=== PATIENT | female | born 1940 | race Caucasian/White ===

== ENCOUNTER 2018-11-16 12:35 | Observation (INO) | payer MEDICARE, OTHER ==
--- NOTE | 2018-11-16 14:00 | PDOC ---
History of Present Illness - General Stated Complaint: DIZZYNESS / NAUSEA - History of Present Illness Initial Comments: 11/16/18 13:59 77 yo female with PMH HTN, HLD, aortic valve replacement presents with complaint of 1 day of dizziness vs lightheadedness upon exertion. She states yesterday in addition to the dizziness she has one episode of feeling vague heaviness on the right side associated with some diaphoresis, which resolved after about one hour. She also endorses some nausea yesterday which prevented her from eating, however prior to yesterday she states she has had a normal appetite recently and been drinking plenty of water. She denies any recent chest pain or SOB, fevers, chills, cough, abdominal pain, vomiting, diarrhea. She notes feeling similar symptoms rarely in the past which have quickly resolved. She comes in today due to the fact that they have persisted from yesterday to today. Past History - Past Medical History Allergies/Adverse Reactions: Allergies Allergy/AdvReac Type Severity Reaction Status Date / Time No Known Allergies Allergy Verified 11/16/18 15:43 Home Medications: Ambulatory Orders Amlodipine Besylate [Norvasc -] 2.5 mg PO DAILY 11/16/18 Aspirin [ASA -] 81 mg PO DAILY 11/16/18 Atorvastatin Ca [Lipitor] 40 mg PO HS 11/16/18 - Suicide/Smoking/Psychosocial Hx Smoking History: Never smoked Have you smoked in the past 12 months: No Information on smoking cessation initiated: No Hx Alcohol Use: No Drug/Substance Use Hx: No Review of Systems - Review of Systems Able to Perform ROS?: Yes Constitutional: Yes: Diaphoresis. No: Chills, Fever HEENTM: No: Blurred Vision Respiratory: No: Cough, Shortness of Breath Cardiac (ROS): No: Chest Pain, Edema ABD/GI: Yes: Nausea. No: Abdominal Distended, Diarrhea, Vomiting : No: Burning, Dysuria, Discharge Musculoskeletal: No: Back Pain Neurological: Yes: Dizziness *Physical Exam - Vital Signs Last Vital Signs Temp Pulse Resp BP Pulse Ox 98.6 F 64 20 127/81 99 11/16/18 12:51 11/16/18 12:51 11/16/18 12:51 11/16/18 12:51 11/16/18 12:51 - Physical Exam Comments: 11/16/18 13:59 GEN: A&O, no acute distress HEENT: moist mucus membranes NECK: no carotid bruit noted HEART: 3/6 holosystolic murmur most audible at right sternal border, RRR LUNGS: CTA b/l ABDOMEN: Soft, nontender EXTREMITIES: no peripheral edema NEURO: CN II-XII grossly in tact, 5/5 strength throughout, no sensory deficits noted. Moderate Sedation - Procedure Monitoring Vital Signs: Procedure Monitoring Vital Signs Temperature 98.6 F 11/16/18 12:51 Pulse Rate 64 11/16/18 12:51 Respiratory Rate 20 11/16/18 12:51 Blood Pressure 127/81 11/16/18 12:51 O2 Sat by Pulse Oximetry (%) 99 11/16/18 12:51 ED Treatment Course - LABORATORY CBC & Chemistry Diagram: 11/16/18 14:54 11/16/18 14:54 Medical Decision Making - Medical Decision Making 11/16/18 14:20 77 yo female with pmh HTN, HLD, Aortic heart valve replacement, presents with lightheadedness vs dizziness on exertion, nausea, and an episode of right sided UE heaviness associated with sweating which lasted 1 hour yesterday. CBC, CMP, Cardiac profile, EKG, CXR, Orthostatic vital signs, Influenza swab, 1L fluid bolus 11/16/18 15:32 Upon reevaluation pt states she has been anemic in the past but is not requiring any supplementation. CBC noted wnl. Coags wnl. EKG without any concerning ST/T wave abnormalities CMP, cardiac profile, flu swab, CXR pending 11/16/18 16:14 CMP, Cardiac profile wnl, pt states she is currently feeling well. Flu and CXR pending. Pt had ECHO one month ago which she states was normal. 11/16/18 17:26 Flu negative, CXR without any signs of acute pathology. Will discuss case with Cardiology for further recommendations. 11/16/18 17:40 Cardiology recommends Telemetry observation and evaluation in the morning for consideration of inpatient vs outpatient stress test. Trend Troponins X3. Will discuss with hospitalist for observation. *DC/Admit/Observation/Transfer Diagnosis at time of Disposition: Lightheaded - Discharge Dispostion Condition at time of disposition: Stable Decision to Admit order: Yes - Referrals Referrals: Jayna Gonzales MD [Primary Care Provider] - Jasper Salinas MD [Staff Physician] - - Patient Instructions Printed Discharge Instructions: DI for Dizziness-Nonvertigo - Post Discharge Activity
[2018-11-16] MEDS ORDERED: LACTATED RINGERS SOLUTION 1000 ML INFUS.BAG IV ONE (14:43)
[2018-11-16 15:04] LABS: BASO % 0.6 % (0-2.0); HEMATOCRIT 37.6 % (32.4-45.2); HEMOGLOBIN 12.9 GM/dL (10.7-15.3); LYMPH % 21.4 % (8-40); MCH 30.5 pg (25.7-33.7); MCHC 34.3 g/dl (32.0-36.0); MEAN CELL VOLUME 89.1 fl (80-96); MEAN PLT VOLUME 9.4 fl (7.5-11.1); PLATELET COUNT 181 K/MM3 (134-434); RBC 4.21 M/mm3 (3.60-5.2); RDW 14.5 % (11.6-15.6); WHITE BLOOD COUNT 6.2 K/mm3 (4.0-10.0)
[2018-11-16 15:29] LABS: INR 1.01 (0.83-1.09); PROTHROMBIN TIME (PATIENT) 11.9 SEC (9.7-13.0)
--- NOTE | 2018-11-16 15:47 | EKG ---
Test Reason : Blood Pressure : / mmHG Vent. Rate : 070 BPM Atrial Rate : 070 BPM P-R Int : 140 ms QRS Dur : 084 ms QT Int : 442 ms P-R-T Axes : 038 -16 036 degrees QTc Int : 477 ms NORMAL SINUS RHYTHM NONSPECIFIC ST ABNORMALITY ABNORMAL ECG WHEN COMPARED WITH ECG OF 29-SEP-2002 09:55, QT HAS LENGTHENED Confirmed by TRISHA NORRIS, OTIS ([id number]) on 11/16/2018 3:46:39 PM Referred By: Confirmed By:OTIS RICO MD
[2018-11-16 15:57] LABS: ALBUMIN 4.4 g/dl (3.4-5.0); ALK PHOS 146 U/L (45-117); ANION GAP 8 MMOL/L (8-16); BILIRUBIN,TOTAL 0.4 mg/dL (0.2-1); BLOOD UREA NITROGEN 10 mg/dL (7-18); CALCIUM 9.2 mg/dL (8.5-10.1); CHLORIDE 107 mmol/L (98-107); CO2 26 mmol/L (21-32); CREATININE 0.7 mg/dL (0.55-1.3); GLUCOSE,RANDOM 77 mg/dL (74-106); POTASSIUM 3.9 mmol/L (3.5-5.1); SGOT/AST 24 U/L (15-37); SGPT/ALT 34 U/L (13-61); SODIUM 141 mmol/L (136-145)
--- NOTE | 2018-11-16 17:14 | PDOC ---
Documentation entered by Sweta Son SCRIBE, acting as scribe for Sharmaine Gardiner MD. Attending Attestation - Resident Resident Name: Christoph Green - [facility] HPI: 11/16/18 15:03 The patient is a 77 year old female with a significant past medical history of HTN, HLD, aortic valve replacement who presents to the ED with complaint of dizziness and lightheadedness upon exertion for 1 day. The patient states she also experienced a heaviness sensation to her right side and sweating during her episode of dizziness which resolved after about an hour. She states she has been drinking plenty of fluids. She denies chest pain, SOB, palpitations. She denies urinary changes. She denies changes in BM. no leg edema. see dr galeas for cardiology. has had echo many years ago, no recent stress test per family. 11/16/18 17:12 - Physicial Exam PE: 11/16/18 17:12 awake alert lungs clear bilaterally heart rrr no mrg abd soft nt nd.ext wwp no edema. no calf tendernss. alert oriented x 3. - Medical Decision Making 11/16/18 17:13 77 yo F h/o aortic valve with episode of right sided atypical chest heaviness. diaphoresis and fatigue. differential atypical angina, anemia, electrolyte abnoramlity infection such as pna. plan cxr ekg trop aspirin. labs normal ekg unremarkable. cxr normal. will admit for atypical angina. d/w dr rodriguez for gudelia 11/16/18 18:29 Heart Score/ECG Review #1 General ECG Interpretation: Sinus Rhythm, Normal Rate (70), Normal Intervals, No acute ischemic changes Sharmaine Gardiner MD: This documentation has been prepared by the Adelaida dickson Amanda, SCRIBE, under my direction and personally reviewed by me in its entirety. I confirm that the documentation accurately reflects all work, treatment, procedures, and medical decision making performed by me.
--- NOTE | 2018-11-16 18:27 | PN ---
Teaching Attending Note Name of Resident: Hina Tinoco ATTENDING PHYSICIAN STATEMENT I saw and evaluated the patient. I reviewed the resident's note and discussed the case with the resident. I agree with the resident's findings and plan as documented. SUBJECTIVE: 77yo F wtih PMH dyslipidemia, AV replacement and recently diagnosed HTN and started on low dose norvasc presented [facility] nausea and R sided CP x1 day. was feeling nauseated all day yesterday but did not vomit. was unable to eat due to the nausea. also developed non radiating R sided chest pressure that self resolved after an hour. some mild dizzyness waxing/waning. reports a normal echo last month. last stress test was several years ago and reports that as negative. only change was recently starting norvasc which she did not take today. denies fever, chills, V/C/D, no dry heaving OBJECTIVE: Last Vital Signs Temp Pulse Resp BP Pulse Ox 98.6 F 64 20 127/81 99 11/16/18 12:51 11/16/18 12:51 11/16/18 12:51 11/16/18 12:51 11/16/18 12:51 General NAD CV S1 S2 RRR +murmur no chest wall tenderness Lungs CTA B/L no wheezing/rales/rhonchi Abdomen soft NT/ND Extremities no pedal edema ASSESSMENT AND PLAN: 77yo F wtih PMH dyslipidemia, AV replacement and recently diagnosed HTN and started on low dose norvasc presented to the ER wt nausea and R sided CP x1 day. 1. R sided CP- tele observation for continuous cardiac monitoring. trend troponins Q6H x2. echo was recently done and will obtain report. cardio was consulted and will decide stress test inpatient vs outpatient 2. Dizzyness-now resolved. orthostatics reported as negative. possible over medication with antihypertensive agent as pt is normotensive here and did not take medications. will trend BP 3. HTN- currently normotensive. would hold antihypertensive agents and re-start as needed 4. Dyslipidemia- Statin 5. AV replacement- on asa 6. DVT ppx- EAM 7. spoke with family present at bedside. all questions answered. verbalized understanding and agreement
--- NOTE | 2018-11-16 18:28 | HP ---
CHIEF COMPLAINT: chest pressure, nausea, dizziness PCP: HISTORY OF PRESENT ILLNESS: Patient is a 77 y/o female with a history of HTN, HLD, and aortic valve replacement (2002) who presents with dizziness nausea and chest pressure. She states she has never felt like this before. The chest pressure lasted about an hour, did not radiate, and she felt diaphoretic at the time. Patient has eaten minimally throughout the day. She states she is feeling better now. Patient typically follows up with Dr. Pak. He recently started her on norvasc for blood pressure. She did not take this medication today. She had an Echo on october 26 and was told everything was normal. She had a normal stress test " many many years ago." Patient no longer has nausea, dizziness, and denies chest pain, SOB, vomiting, diarrhea, or headaches. ER course was notable for: (1) (2) (3) Recent Travel: PAST MEDICAL HISTORY: HTN, HLD, and aortic valve replacement (2002) PAST SURGICAL HISTORY: aortic valve replacement (2002) Social History: Smoking: denies Alcohol: denies Drugs: Family History: Allergies No Known Allergies Allergy (Verified 11/16/18 15:43) HOME MEDICATIONS: Home Medications Medication Instructions Recorded Amlodipine Besylate [Norvasc -] 2.5 mg PO DAILY 11/16/18 Aspirin [ASA -] 81 mg PO DAILY 11/16/18 Atorvastatin Ca [Lipitor] 40 mg PO HS 11/16/18 REVIEW OF SYSTEMS CONSTITUTIONAL: Absent: fever, chills, diaphoresis, generalized weakness, malaise, loss of appetite, weight change HEENT: Absent: rhinorrhea, nasal congestion, throat pain, throat swelling, difficulty swallowing, mouth swelling, ear pain, eye pain, visual changes CARDIOVASCULAR: pressure Absent: chest pain, syncope, palpitations, irregular heart rate, lightheadedness , peripheral edema RESPIRATORY: Absent: cough, shortness of breath, dyspnea with exertion, orthopnea, wheezing, stridor, hemoptysis GASTROINTESTINAL:nausea Absent: abdominal pain, abdominal distension, vomiting, diarrhea, constipation , melena, hematochezia GENITOURINARY: Absent: dysuria, frequency, urgency, hesitancy, hematuria, flank pain, genital pain MUSCULOSKELETAL: Absent: myalgia, arthralgia, joint swelling, back pain, neck pain SKIN: Absent: rash, itching, pallor HEMATOLOGIC/IMMUNOLOGIC: Absent: easy bleeding, easy bruising, lymphadenopathy, frequent infections ENDOCRINE: Absent: unexplained weight gain, unexplained weight loss, heat intolerance, cold intolerance NEUROLOGIC: Absent: headache, focal weakness or paresthesias, dizziness, unsteady gait, seizure, mental status changes, bladder or bowel incontinence PSYCHIATRIC: Absent: anxiety, depression, suicidal or homicidal ideation, hallucinations. PHYSICAL EXAMINATION Vital Signs Temperature 98.6 F 11/16/18 12:51 Pulse Rate 64 11/16/18 12:51 Respiratory Rate 20 11/16/18 12:51 Blood Pressure 127/81 11/16/18 12:51 O2 Sat by Pulse Oximetry (%) 99 11/16/18 12:51 GENERAL: Awake, alert, and fully oriented, in no acute distress. EYES: Pupils equal, round and reactive to light, extraocular movements intact, EARS, NOSE, THROAT: Moist mucous membranes. LUNGS: Breath sounds equal, clear to auscultation bilaterally. No wheezes, and no crackles HEART: 3/6 systolic murmur at R upper sternal borders, S1 and S2 heard ABDOMEN: Soft, nontender, not distended, normoactive bowel sounds, no guarding, no rebound, no masses. LOWER EXTREMITIES: 2+ pulses, warm, well-perfused. No calf tenderness. No peripheral edema. NEUROLOGICAL: Cranial nerves II-XII intact. Normal speech. PSYCHIATRIC: Cooperative. Good eye contact. Appropriate mood and affect. SKIN: Warm, dry, normal turgor, no rashes or lesions noted, normal capillary refill. Laboratory Results - last 24 hr CBCD WBC 6.2 K/mm3 (4.0-10.0) 11/16/18 14:54 RBC 4.21 M/mm3 (3.60-5.2) 11/16/18 14:54 Hgb 12.9 GM/dL (10.7-15.3) 11/16/18 14:54 Hct 37.6 % (32.4-45.2) 11/16/18 14:54 MCV 89.1 fl (80-96) 11/16/18 14:54 MCHC 34.3 g/dl (32.0-36.0) 11/16/18 14:54 RDW 14.5 % (11.6-15.6) 11/16/18 14:54 Plt Count 181 K/MM3 (134-434) 11/16/18 14:54 MPV 9.4 fl (7.5-11.1) 11/16/18 14:54 CMP Sodium 141 mmol/L (136-145) 11/16/18 14:54 Potassium 3.9 mmol/L (3.5-5.1) 11/16/18 14:54 Chloride 107 mmol/L (98-107) 11/16/18 14:54 Carbon Dioxide 26 mmol/L (21-32) 11/16/18 14:54 Anion Gap 8 MMOL/L (8-16) 11/16/18 14:54 BUN 10 mg/dL (7-18) 11/16/18 14:54 Creatinine 0.7 mg/dL (0.55-1.3) 11/16/18 14:54 Creat Clearance w eGFR > 60 (>60) 11/16/18 14:54 Random Glucose 77 mg/dL (74-106) 11/16/18 14:54 Calcium 9.2 mg/dL (8.5-10.1) 11/16/18 14:54 Total Bilirubin 0.4 mg/dL (0.2-1) 11/16/18 14:54 AST 24 U/L (15-37) 11/16/18 14:54 ALT 34 U/L (13-61) 11/16/18 14:54 Alkaline Phosphatase 146 U/L (45-117) H 11/16/18 14:54 Total Protein 8.0 g/dl (6.4-8.2) 11/16/18 14:54 Albumin 4.4 g/dl (3.4-5.0) 11/16/18 14:54 CARDIAC ENZYMES Creatine Kinase 101 U/L (26-192) 11/16/18 14:54 Troponin I < 0.02 ng/ml (0.00-0.05) 11/16/18 14:54 ASSESSMENT/PLAN: Patient is a 77 y/o female with a history of HTN, HLD, and aortic valve replacement (2002) who is here for r/o ACS. #r/o ACS - symptoms resolved, monitor overnight - trend second troponin, first < 0.2 - monitor on tele - ekg without st elevations - f/u with Dr. Pak - echo 2 weeks ago with PCP, per patient normal - influenza negative #HLD - atorvastatin 40 mg daily #HTN - hold BP medications for now - stable for now #aortic valve replacement - aspirin 81 mg daily #DVT - early ambulation #FEN - NPO for possible stress test Dispo: f/u with Cardio Consult tomorrow Visit type - Emergency Visit Emergency Visit: Yes Care time: The patient presented to the Emergency Department on the above date and was hospitalized for further evaluation of their emergent condition. - New Patient This patient is new to me today: Yes Date on this admission: 11/16/18 - Critical Care Critical Care patient: No
[2018-11-16] MEDS ORDERED: ATORVASTATIN CA 40 MG TABLET (FP) PO SCH (22:00)
[2018-11-17 00:46] VITALS: BMI 25.2
[2018-11-17 06:16] VITALS: BP 102/56
[2018-11-17 07:13] LABS: EOS % 3.8 % (0-4.5); HEMATOCRIT 29.8 % (32.4-45.2); HEMOGLOBIN 10.2 GM/dL (10.7-15.3); LYMPH % 28.6 % (8-40); MCH 30.5 pg (25.7-33.7); MCHC 34.2 g/dl (32.0-36.0); MEAN CELL VOLUME 89.1 fl (80-96); MEAN PLT VOLUME 9.6 fl (7.5-11.1); MONO % 12.4 % (3.8-10.2); NEUT % 54.2 % (42.8-82.8); PLATELET COUNT 157 K/MM3 (134-434); RBC 3.34 M/mm3 (3.60-5.2); RDW 14.3 % (11.6-15.6); WHITE BLOOD COUNT 4.9 K/mm3 (4.0-10.0)
[2018-11-17 07:53] LABS: ALBUMIN 3.3 g/dl (3.4-5.0); ALK PHOS 111 U/L (45-117); ANION GAP 5 MMOL/L (8-16); BILIRUBIN,TOTAL 0.4 mg/dL (0.2-1); BLOOD UREA NITROGEN 19 mg/dL (7-18); CALCIUM 8.6 mg/dL (8.5-10.1); CHLORIDE 111 mmol/L (98-107); CO2 28 mmol/L (21-32); CREATININE 0.7 mg/dL (0.55-1.3); GLUCOSE,RANDOM 87 mg/dL (74-106); PHOSPHOROUS 4.1 mg/dL (2.5-4.9); POTASSIUM 3.9 mmol/L (3.5-5.1); SGOT/AST 17 U/L (15-37); SGPT/ALT 25 U/L (13-61); SODIUM 145 mmol/L (136-145)
[2018-11-17] MEDS ORDERED: ENOXAPARIN NA (PORCINE) 40 MG/0.4 ML DISP.SYRIN SQ SCH (10:00)
[2018-11-17] MEDS ORDERED: ASPIRIN 81 MG CHEWABLE TABLETS PO SCH (10:00)
[2018-11-17 10:02] VITALS: PULSE 62; TEMP 98.6
--- NOTE | 2018-11-17 10:26 | CON.CARD ---
Consult Consult Specialty:: csardiology Reason for Consultation:: atypical chest pain; fatigue, dizziness - History of Present Illness Chief Complaint: Pt A&Ox3; asymptomatic History of Present Illness: 77 yo female with PMH HTN, HLD, bioprosthetic aortic valve replacement presents with complaint of 1 day of dizziness vs lightheadedness upon exertion. She states yesterday in addition to the dizziness she has one episode of feeling vague heaviness on the right side that was moderate, constant for a few days?, associated with some diaphoresis.. She also endorses some nausea yesterday which prevented her from eating, however prior to yesterday she states she has had a normal appetite recently and been drinking plenty of water. She denies any recent chest pain or SOB, fevers, chills, cough, abdominal pain, vomiting, diarrhea. She notes feeling similar symptoms rarely in the past which have quickly resolved. She comes in today due to the fact that they have persisted from yesterday to today. - History Source History Provided By: Patient, Medical Record Limitations to Obtaining History: No Limitations - Past Medical History Cardio/Vascular: Yes: CHF (diastolic), Murmur Reproductive: Yes: Postmenopausal ...: No - Alcohol/Substance Use Hx Alcohol Use: No - Smoking History Smoking history: Never smoked Have you smoked in the past 12 months: No Home Medications - Allergies Allergies/Adverse Reactions: Allergies Allergy/AdvReac Type Severity Reaction Status Date / Time No Known Allergies Allergy Verified 11/16/18 15:43 - Home Medications Home Medications: Ambulatory Orders Amlodipine Besylate [Norvasc -] 2.5 mg PO DAILY 11/16/18 Aspirin [ASA -] 81 mg PO DAILY 11/16/18 Atorvastatin Ca [Lipitor] 40 mg PO HS 11/16/18 Family Disease History - Family Disease History Family History: Denies Review of Systems - Review of Systems Constitutional: reports: Weakness Eyes: reports: No Symptoms HENT: reports: No Symptoms Neck: reports: No Symptoms Cardiovascular: reports: Chest Pain Respiratory: reports: No Symptoms Gastrointestinal: reports: No Symptoms Genitourinary: reports: No Symptoms Breasts: reports: No Symptoms Reported Musculoskeletal: reports: Muscle Weakness Integumentary: reports: No Symptoms Neurological: reports: No Symptoms Endocrine: reports: No Symptoms Hematology/Lymphatic: reports: No Symptoms Psychiatric: reports: Anxiety - Risk Factors Known Risk Factors: Yes: Age, Hypercholesterolemia Vital Signs: Vital Signs Temperature 98.6 F 11/17/18 09:00 Pulse Rate 62 11/17/18 09:00 Respiratory Rate 112 H 11/17/18 09:00 Blood Pressure 102/56 L 11/17/18 06:00 O2 Sat by Pulse Oximetry (%) 98 11/17/18 09:00 Constitutional: Yes: Well Nourished Eyes: Yes: WNL HENT: Yes: WNL Neck: Yes: WNL Respiratory: Yes: WNL Gastrointestinal: Yes: WNL Renal/: No: Anuria Cardiovascular: Yes: Regular Rate and Rhythm JVD: No Carotid Bruit: No PMI: Non-Displaced Heart Sounds: Yes: S1, S2 Murmur: Yes: Systolic Murmur, Grade 1 Musculoskeletal: Yes: WNL Edema: No Peripheral Pulses WNL: Yes Integumentary: Yes: WNL Neurological: Yes: WNL ...Motor Strength: WNL Psychiatric: Yes: Alert, Oriented - Other Data Labs, Other Data: CBC, BMP 11/17/18 05:30 11/17/18 05:30 INR, PTT INR 1.01 (0.83-1.09) 11/16/18 14:54 Troponin, BNP 11/16/18 11/16/18 14:54 21:45 Troponin I < 0.02 < 0.02 Troponin, BNP 11/16/18 11/16/18 14:54 21:45 Troponin I < 0.02 < 0.02 Abnormal Lab Results 11/16/18 11/17/18 11/17/18 14:54 05:30 05:30 RBC 3.34 L Hgb 10.2 L Hct 29.8 L D Monocytes % 12.4 H Chloride 111 H Anion Gap 5 L BUN 19 H Alkaline Phosphatase 146 H Total Protein 6.0 L Albumin 3.3 L Total LDL Cholesterol 11/17/18 06:53 RBC Hgb Hct Monocytes % Chloride Anion Gap BUN Alkaline Phosphatase Total Protein Albumin Total LDL Cholesterol 103 H Ejection Fraction %: LVEF > or = 40 % Imaging - Results Chest X-ray: Image Reviewed EKG: Image Reviewed Problem List - Problems (1) Atypical chest pain Assessment/Plan: TNI < 0.02 x 2. EKG: NSR If stress MIBI is negative today, pt may be follopwed up as an outpatient from cardiac perspective. Code(s): R07.89 - OTHER CHEST PAIN (2) Anemia Code(s): D64.9 - ANEMIA, UNSPECIFIED (3) History of aortic valve replacement with bioprosthetic valve Code(s): Z95.3 - PRESENCE OF XENOGENIC HEART VALVE
[2018-11-17 12:11] LABS: CHOLESTEROL 176 mg/dL (50-200); HDL CHOLESTEROL 55 mg/dL (40-60); TRIGLYCERIDES 84 mg/dL (0-150)
[2018-11-17 13:25] LABS: HEMOGLOBIN 11.3 GM/dL (10.7-15.3); MCH 30.6 pg (25.7-33.7); MCHC 34.3 g/dl (32.0-36.0); MEAN CELL VOLUME 89.4 fl (80-96); MEAN PLT VOLUME 9.2 fl (7.5-11.1); PLATELET COUNT 165 K/MM3 (134-434); RBC 3.69 M/mm3 (3.60-5.2); RDW 14.5 % (11.6-15.6); WHITE BLOOD COUNT 4.8 K/mm3 (4.0-10.0)
--- NOTE | 2018-11-17 13:25 | PN ---
Teaching Attending Note Name of Resident: Hina Tinoco ATTENDING PHYSICIAN STATEMENT I saw and evaluated the patient. I reviewed the resident's note and discussed the case with the resident. I agree with the resident's findings and plan as documented. SUBJECTIVE:nausea resolved. had dizzyness this AM when she got out of bed quickly but then resolved. said no repeat episodes. denies CP, SOB, fever, chills, N/V/C/D OBJECTIVE: Last Vital Signs Temp Pulse Resp BP Pulse Ox 98.6 F 62 112 H 102/56 L 98 11/17/18 09:00 11/17/18 09:00 11/17/18 09:00 11/17/18 06:00 11/17/18 09:00 General NAD CV S1 S2 RRR +murmur no chest wall tenderness Lungs CTA B/L no wheezing/rales/rhonchi Abdomen soft NT/ND Extremities no pedal edema ASSESSMENT AND PLAN: 77yo F wtih PMH dyslipidemia, AV replacement and recently diagnosed HTN and started on low dose norvasc presented to the ER wtih nausea and R sided CP x1 day. 1. R sided CP- no repeat episodes. cardiac enzymes neg x 2. for NMST today. 2. Dizzyness-now resolved. possible orthostatic 3. HTN- currently normotensive. believe does not require antihypertensive. will hold on d/c. 4. Dyslipidemia- Statin 5. AV replacement- on asa 6. DVT ppx- EAM 7. d/c home pending results of NMST
--- NOTE | 2018-11-17 15:30 | DS ---
Physical Exam: SUBJECTIVE: Patient seen and without complaints this morning. Cardiology will see this morning. OBJECTIVE: Vital Signs Temperature 98.6 F 11/17/18 09:00 Pulse Rate 62 11/17/18 09:00 Respiratory Rate 112 H 11/17/18 09:00 Blood Pressure 102/56 L 11/17/18 06:00 O2 Sat by Pulse Oximetry (%) 98 11/17/18 09:00 PHYSICAL EXAM GENERAL: Awake, alert, and fully oriented, in no acute distress. EYES: Pupils equal, round and reactive to light, extraocular movements intact, EARS, NOSE, THROAT: Moist mucous membranes. LUNGS: Breath sounds equal, clear to auscultation bilaterally. No wheezes, and no crackles HEART: 3/6 systolic murmur at R upper sternal borders, S1 and S2 heard ABDOMEN: Soft, nontender, not distended, normoactive bowel sounds, no guarding, no rebound, no masses. LOWER EXTREMITIES: 2+ pulses, warm, well-perfused. No calf tenderness. No peripheral edema. NEUROLOGICAL: Cranial nerves II-XII intact. Normal speech. PSYCHIATRIC: Cooperative. Good eye contact. Appropriate mood and affect. SKIN: Warm, dry, normal turgor, no rashes or lesions noted, normal capillary refill. LABS HOS CBC, BMP 11/17/18 13:05 11/17/18 05:30 PITAL COURSE: Date of Admission:11/16/18 Patient admitted to the hospital for r/o ACS. Troponins negative, ekg without changes. Cleared by cardio will follow up as an outpatinet. STable for DC. Date of Discharge: 11/17/18 Minutes to complete discharge: 35 Discharge Summary Reason For Visit: LIGHTHEADEDNESS Current Active Problems Anemia (Acute) Atypical chest pain (Acute) History of aortic valve replacement with bioprosthetic valve (Acute) Lightheaded (Acute) Condition: Improved - Instructions Diet, Activity, Other Instructions: You were admitted because you were feeling dizzy and you had some chest pain. Your EKG (picture of your heart) did not show any signs heart damage. Your blood tests also show that there is no damage to your heart. You had a stress test with Dr. Tejeda, which was normal. Your dizziness and fainting may be partly due to your amlodipine (norvasc) blood pressure medication. You should STOP taking amlodipine (norvasc) until you visit your doctor. You should follow up with a metal hardener within one week. You should follow up with your primary care physician within one week of discharge. If you begin to experience chest pain, shortness of breath, worsening dizziness , vomiting or if any of your symptoms become worse, please call your doctor or return to the emergency department. Referrals: Jf Pak MD [Staff Physician] - Jayna Gonzales MD [Primary Care Provider] - Disposition: HOME - Home Medications Comprehensive Discharge Medication List: Ambulatory Orders Aspirin [ASA -] 81 mg PO DAILY 11/16/18 Atorvastatin Ca [Lipitor] 40 mg PO HS 11/16/18 This patient is new to me today: No Emergency Visit: No Critical Care patient: No - Discharge Referral Referred to [facility] No
== END 2018-11-17 15:35 | disposition home or self-care (01) ==
LOC: JER 12:35 → JERBED 17:55 → J4W 21:11
PROVIDERS: ADMIT Internal Medicine; ATTEND Internal Medicine
DX: R07.89 Other chest pain (principal); R42 Dizziness and giddiness; I10 Essential (primary) hypertension; E78.5 Hyperlipidemia, unspecified; Z79.84 Long term (current) use of oral hypoglycemic drugs; D64.9 Anemia, unspecified; Z95.3 Presence of xenogenic heart valve
CPT/HCPCS: 36415; 71046-TC-FY; 78452-TC; 80053; 80061; 82550; 83721; 83735; 84100; 84443; 84484; 85025; 85027; 85610; 87804; 93005; 93010; 93017; 99285-25; A9502; G0378